=== PATIENT | male | born 1975 | race Caucasian/White ===

== ENCOUNTER 2017-02-14 22:03 | Emergency (ER) | payer SELFPAY ==
[~2017-02-14] VITALS: Ht 170.2 cm; Wt 74.8 kg
[2017-02-14 22:42] VITALS: BP 146/86
[2017-02-15] MEDS ORDERED: IBUPROFEN 600 MG TAB PO ONE (01:00)
[2017-02-15] MEDS ORDERED: CYCLOBENZAPRINE HCL 10 MG TAB PO ONE (01:00)
== END 2017-02-15 01:10 | disposition home or self-care (01) ==
LOC: ER 22:05
DX: S13.9XXA Sprain of joints and ligaments of unspecified parts of neck, initial encounter (principal); S39.012A Strain of muscle, fascia and tendon of lower back, initial encounter; B19.20 Unspecified viral hepatitis C without hepatic coma; V43.52XA Car driver injured in collision with other type car in traffic accident, initial encounter; Y93.89 Activity, other specified; Y99.8 Other external cause status; Y92.89 Other specified places as the place of occurrence of the external cause

== ENCOUNTER 2017-07-06 21:48 | Emergency (ER) | payer SELFPAY ==
[~2017-07-06] VITALS: Ht 167.6 cm; Wt 83.5 kg
[2017-07-06 22:18] VITALS: BP 142/79
[2017-07-06 23:01] LABS: Basophils # (auto) 0 uL; Basophils % (auto) 0.4 % (0.0-2.0); CONDITION Y; Eosinophils # (auto) 0.1 uL; Hemoglobin 14.9 g/dL (13.5-17.5); Lymphocytes # (auto) 1.7 uL; Lymphocytes % (auto) 12.8 % (10.0-50.0); Mean Corpuscular Hemoglobin 30.7 pg (28.0-32.0); Mean Corpuscular Hgb Conc. 34.8 g/dL (32.0-36.0); Mean Corpuscular Volume 88.3 fL (80.0-100.0); Mean Platelet Volume 8.1 fL (6.9-10.8); Monocytes # (auto) 1.5 uL; Monocytes % (auto) 11.6 % (0.0-12.0); Neutrophils # (auto) 9.7 uL; Neutrophils % (auto) 74.2 % (37.0-80.0); Platelet Count (auto) 213 10^3/uL (140-450); Red Cell Distribution Width 13.1 % (11.8-14.3); White Blood Cell 13.1 10^3/uL (4.4-10.8)
[2017-07-06 23:24] LABS: Albumin 3.2 g/dL (3.4-5.0); BUN/Creatinine Ratio 12.4; Calcium 8.4 mg/dL (8.5-10.1)
[2017-07-06 23:37] LABS: Bilirubin, Total 0.3 mg/dL (0.2-1.0); Total Protein 7.5 g/dL (6.4-8.2)
== END 2017-07-07 04:25 | disposition left against medical advice (07) ==
LOC: ER 21:51
DX: R06.02 Shortness of breath (principal); Z53.21 Procedure and treatment not carried out due to patient leaving prior to being seen by health care provider
CPT/HCPCS: 36415; 71020; 80053; 85025

== ENCOUNTER 2020-07-30 09:19 | Emergency (ER) | payer MEDICAID ==
[~2020-07-30] VITALS: Ht 172.7 cm; Wt 81.6 kg
[2020-07-30 11:30] VITALS: BP 128/90
[2020-07-30] MEDS ORDERED: cefTRIAXone SOD 1,000 MG VL IM ONE (12:15)
== END 2020-07-30 12:49 | disposition home or self-care (01) ==
LOC: ER 09:19
DX: N45.2 Orchitis (principal); N45.1 Epididymitis; N43.3 Hydrocele, unspecified; N50.3 Cyst of epididymis
CPT/HCPCS: 76870; 81002; 96372; 99284; J0696